=== PATIENT | female | born 1985 | race American Indian/Alaskan Native ===

== ENCOUNTER 2016-11-21 16:32 | Emergency (ER) | payer SELFPAY ==
[2016-11-21 17:41] VITALS: BP 121/80
== END 2016-11-21 18:09 | disposition left against medical advice (07) ==
LOC: ED 16:32
DX: R51 Headache (principal); R42 Dizziness and giddiness; Z53.21 Procedure and treatment not carried out due to patient leaving prior to being seen by health care provider

== ENCOUNTER 2018-05-16 03:01 | Emergency (ER) | payer BC ==
[2018-05-16 03:06] VITALS: BP 103/70
[2018-05-16 05:03] LABS: Basophils % (Auto) 0.7 % (0.0-1.8); Eosinophils # (Auto) 0.2 K/mm3 (0.0-0.4); Eosinophils % (Auto) 2.4 % (0.0-4.3); Hematocrit 36.3 % (30.3-42.9); Hemoglobin 11.5 gm/dl (10.1-14.3); Lymphocytes # (Auto) 2.4 K/mm3 (1.2-5.4); Mean Corpuscular HGB Conc 32 % (30-34); Mean Corpuscular Volume 81 fl (79-97); Monocytes # (Auto) 0.7 K/mm3 (0.0-0.8); Monocytes % (Auto) 10.3 % (0.0-7.3); Platelet Count 247 K/mm3 (140-440); Red Cell Distribution Width 17.4 % (13.2-15.2)
[2018-05-16 05:04] LABS: Mean Corpuscular Hemoglobin 26 pg (28-32)
[2018-05-16 05:18] LABS: Alanine Aminotransferase 10 units/L (7-56); BUN/Creatinine Ratio 14; Blood Urea Nitrogen 10 mg/dL (7-17); Calcium 9.4 mg/dL (8.4-10.2); Hemolysis Index 2
[2018-05-16 05:33] LABS: Bilirubin,Urine NEG (Negative); Blood,Urine NEG (Negative); Color,Urine Yellow (Yellow); Mucus,Urine 3+ /HPF; Protein,Urine <15 mg/dL mg/dL (Negative); Urobilinogen,Urine < 2.0 mg/dL (<2.0); WBC,Urine < 1.0 /HPF (0.0-6.0)
[2018-05-16] MEDS ORDERED: ZOFRAN IV ONE (09:04)
[2018-05-16] MEDS ORDERED: NACL 0.9% 1000 ML 1,000 ML IV ONE (09:04)
[2018-05-16] MEDS ORDERED: TORADOL IV ONE (09:04)
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
--- NOTE | 2018-05-16 11:17 | Cat Scan Report ---
CT ABDOMEN PELVIS WITH CONTRAST: HISTORY: abdominal pain. COMPARISON: none. TECHNIQUE: Helical CT in 1.25mm intervals following IV contrast. Sagittal and coronal reconstructions. FINDINGS: Lung bases: Normal. Liver: Normal. Biliary system: Normal. Pancreas: Normal. Spleen: Normal. Kidneys/ureters/bladder: Normal. Adrenal glands: Normal. Aorta: Normal. Intestines: Within normal limits given no oral contrast was administered. Appendix: Normal. Pelvic viscera: A 1.9 cm peripherally enhancing right ovarian cyst is identified. The uterus and left adnexa are unremarkable. Ascites: None. Adenopathy: None. Musculoskeletal: Normal. IMPRESSION: 1.9 cm right ovarian cyst.
== END 2018-05-16 11:25 | disposition home or self-care (01) ==
LOC: ED 03:01
DX: R11.2 Nausea with vomiting, unspecified (principal); R19.7 Diarrhea, unspecified; R10.84 Generalized abdominal pain
CPT/HCPCS: 36415; 74177; 80053; 81001; 84703; 85025; 96361; 96374; 96375; 99284; Q9967

== ENCOUNTER 2018-08-28 04:18 | Emergency (ER) | payer OTHER, BC ==
[2018-08-28 04:48] VITALS: BP 112/65
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
== END 2018-08-28 06:22 | disposition home or self-care (01) ==
LOC: ED 04:18
DX: S16.1XXA Strain of muscle, fascia and tendon at neck level, initial encounter (principal); V89.2XXA Person injured in unspecified motor-vehicle accident, traffic, initial encounter; Y93.89 Activity, other specified; Y92.488 Other paved roadways as the place of occurrence of the external cause; Y99.8 Other external cause status
CPT/HCPCS: 99282

== ENCOUNTER 2018-12-26 15:42 | Emergency (ER) | payer BC, OTHER ==
--- NOTE | 2018-12-26 17:35 | Emergency Department Report ---
Blank Doc - Documentation Documentation: 33 y.o. female presents with nausea w/o vomiting and feel weak x 2 days. LMP 12/10/17. No PMH. Recently lost child's father and feel stressed. Labs ordered Fast Track for evaluation
[2018-12-26 18:29] LABS: Amorphous Crystals,Urine Few; Bacteria,Urine 1+ /HPF (Negative); Bilirubin,Urine NEG (Negative); Blood,Urine NEG (Negative); Color,Urine Yellow (Yellow); Mucus,Urine 1+ /HPF; Protein,Urine <15 mg/dL mg/dL (Negative); Urobilinogen,Urine < 2.0 mg/dL (<2.0)
[2018-12-26 18:35] LABS: HCG Qualitative,Urine Negative (Negative)
[2018-12-26 21:18] LABS: Basophils # (Auto) 0.1 K/mm3 (0.0-0.1); Eosinophils # (Auto) 0.2 K/mm3 (0.0-0.4); Eosinophils % (Auto) 2.3 % (0.0-4.3); Hematocrit 34.5 % (30.3-42.9); Hemoglobin 11.1 gm/dl (10.1-14.3); Lymphocytes % (Auto) 42.8 % (13.4-35.0); Mean Corpuscular HGB Conc 32 % (30-34); Mean Corpuscular Volume 80 fl (79-97); Monocytes # (Auto) 0.7 K/mm3 (0.0-0.8); Monocytes % (Auto) 9.7 % (0.0-7.3); Platelet Count 247 K/mm3 (140-440); Red Blood Count 4.31 M/mm3 (3.65-5.03); Red Cell Distribution Width 17.1 % (13.2-15.2)
[2018-12-26 21:35] LABS: BUN/Creatinine Ratio 14; Blood Urea Nitrogen 13 mg/dL (7-17); Calcium 9.5 mg/dL (8.4-10.2); Hemolysis Index 8
--- NOTE | 2018-12-26 22:10 | Emergency Department Report ---
ED General Adult HPI - General Chief complaint: Nausea/Vomiting/Diarrhea Stated complaint: FATIGUE Time Seen by Provider: 12/26/18 21:05 Source: patient Mode of arrival: Ambulatory Limitations: No Limitations - History of Present Illness Initial comments: This is a 33-year-old female nontoxic, well nourished in appearance, no acute signs of distress presents to the ED with c/o of weakness, tiredness and nausea 2 days. Patient stated that she currently lost fathers son prior to these symptoms. Patient stated that the past 4 years she lost 4 people in her family. Patient denies any suicidal or homicidal ideation. Patient stated she has not been sleeping more then 2-3 hours a day due to recent lost. Patient denies any headache, nausea, vomiting, chest pain, shortness of breathe, fever, chills, numbness or tingling. Patient denies any abdominal or pelvic pain. Patient denies any allergies or PMH. -: days(s) (2) Severity scale (0 -10): 0 Improves with: none Worsens with: none Associated Symptoms: denies other symptoms. denies: confusion, chest pain, cough, diaphoresis, fever/chills, headaches, loss of appetite, malaise, nausea/vomiting, rash, seizure, shortness of breath, syncope, weakness Treatments Prior to Arrival: none - Related Data Previous Rx's Medication Instructions Recorded Last Taken Type Ondansetron [Zofran Odt] 4 mg PO Q8HR PRN #20 tab.rapdis 05/16/18 Unknown Rx Baclofen [Lioresal] 10 mg PO TID #15 tab 08/28/18 Unknown Rx Ibuprofen [Motrin 600 MG tab] 600 mg PO Q8H PRN #30 tablet 08/28/18 Unknown Rx ALPRAZolam [Xanax TAB] 0.25 mg PO DAILY PRN #5 tab 12/26/18 Unknown Rx Allergies Allergy/AdvReac Type Severity Reaction Status Date / Time No Known Allergies Allergy Verified 08/28/18 05:09 ED Review of Systems ROS: Stated complaint: FATIGUE Other details as noted in HPI Constitutional: denies: chills, fever Eyes: denies: eye pain, eye discharge, vision change ENT: denies: ear pain, throat pain Respiratory: denies: cough, shortness of breath, wheezing Cardiovascular: denies: chest pain, palpitations Endocrine: no symptoms reported Gastrointestinal: denies: abdominal pain, nausea, diarrhea Genitourinary: denies: urgency, dysuria, discharge Musculoskeletal: denies: back pain, joint swelling, arthralgia Skin: denies: rash, lesions Neurological: denies: headache, weakness, paresthesias Psychiatric: denies: anxiety, depression Hematological/Lymphatic: denies: easy bleeding, easy bruising ED Past Medical Hx - Surgical History Additional Surgical History: x 2 - Social History Smoking Status: Never Smoker Substance Use Type: None - Medications Home Medications: Home Medications Medication Instructions Recorded Confirmed Last Taken Type Ondansetron [Zofran Odt] 4 mg PO Q8HR PRN #20 tab.rapdis 05/16/18 Unknown Rx Baclofen [Lioresal] 10 mg PO TID #15 tab 08/28/18 Unknown Rx Ibuprofen [Motrin 600 MG tab] 600 mg PO Q8H PRN #30 tablet 08/28/18 Unknown Rx ALPRAZolam [Xanax TAB] 0.25 mg PO DAILY PRN #5 tab 12/26/18 Unknown Rx ED Physical Exam - General Limitations: No Limitations General appearance: alert, in no apparent distress - Head Head exam: Present: atraumatic, normocephalic - Eye Eye exam: Present: normal appearance - Neck Neck exam: Present: normal inspection, full ROM - Respiratory Respiratory exam: Present: normal lung sounds bilaterally. Absent: respiratory distress, wheezes, rales, rhonchi, stridor, chest wall tenderness, accessory muscle use, decreased breath sounds, prolonged expiratory - Cardiovascular Cardiovascular Exam: Present: regular rate, normal rhythm, normal heart sounds. Absent: bradycardia, tachycardia, irregular rhythm, systolic murmur, diastolic murmur, rubs, gallop - Extremities Exam Extremities exam: Present: normal inspection, full ROM - Back Exam Back exam: Present: normal inspection, full ROM - Neurological Exam Neurological exam: Present: alert, oriented X3 - Psychiatric Psychiatric exam: Present: normal affect, depressed. Absent: agitated, anxious, flat affect, manic, homicidal ideation, suicidal ideation - Skin Skin exam: Present: warm, dry, intact, normal color. Absent: rash ED Course Vital Signs 12/26/18 17:31 Temperature 97.9 F Pulse Rate 79 Respiratory 18 Rate Blood Pressure 106/44 O2 Sat by Pulse 100 Oximetry - Reevaluation(s) Reevaluation #1: 12/26/18 22:12 Patient is speaking in full sentences with no signs of distress noted. ED Medical Decision Making - Lab Data Result diagrams: 12/26/18 21:04 12/26/18 21:04 - Medical Decision Making This is a 33-year-old female that presents for generalized weakness. Patient stable and was examined by me. Patient denies any suicidal or homicidal ideations. Patient does seem slightly depressed. Labs unremarkable. Patient and I had a long conversation about patient's past medical history and I comforted patient. Patient was educated how to comfort anxeity and depression. I will discharge with Xanax for a few days for anxity and so patient can get some rest. Patient was referred to Follow-up with a primary care/psychologist or psychiatrist doctor in 3-5 days or if symptoms worsen and continue return to emergency room as soon as possible. At time of discharge, the patient does not seem toxic or ill in appearance. No acute signs of distress noted. Patient agrees to discharge treatment plan of care. No further questions noted by the patient. Critical care attestation.: If time is entered above; I have spent that time in minutes in the direct care of this critically ill patient, excluding procedure time. ED Disposition Clinical Impression: Generalized weakness, Anxiety Disposition: DC-01 TO HOME OR SELFCARE Is pt being admited?: No Does the pt Need Aspirin: No Condition: Stable Instructions: Alprazolam (By mouth), Anxiety (ED) Additional Instructions: Follow-up with a primary care/psychologist or psychiatrist doctor in 3-5 days or if symptoms worsen and continue return to emergency room as soon as possible. Prescriptions: ALPRAZolam [Xanax TAB] 0.25 mg PO DAILY PRN #5 tab PRN Reason: Anxiety Referrals: PRIMARY CAREMD [Referring] - 3-5 Days KAYLEEN CAMARA MD [Staff Physician] - 3-5 Days [facility] [Outside] - 3-5 Days [facility] [Outside] - 3-5 Days Forms: Work/School Release Form(ED)
[2018-12-26 22:43] VITALS: BP 110/71
== END 2018-12-26 22:42 | disposition home or self-care (01) ==
LOC: ED 15:42
DX: R53.1 Weakness (principal); F41.9 Anxiety disorder, unspecified
CPT/HCPCS: 36415; 80048; 81001; 81025; 85025; 99283